=== PATIENT | female | born 1945 | race Caucasian/White ===

== ENCOUNTER 2019-06-21 09:26 | Outpatient (CLI) | payer MEDICARE ==
[2019-06-21] MEDS ORDERED: GADOTERATE 7.5 MMOL/15 ML VIAL ONE (10:05)
== END 2019-06-21 23:59 | disposition home or self-care (01) ==
LOC: CFH 09:26
PROVIDERS: ATTEND Obstetrics & Gynecology
DX: R92.8 Other abnormal and inconclusive findings on diagnostic imaging of breast (principal)
CPT/HCPCS: 77049; A9575; C8937; C8908